=== PATIENT | male | born 1975 | race Caucasian/White ===

== ENCOUNTER 2016-09-17 16:48 | Emergency (ER) | payer BC ==
[2016-09-17 17:20] VITALS: BP 147/95
--- NOTE | 2016-09-17 19:37 | EDM.PDOC ---
ED HPI NEURO - General Chief Complaint: Neuro Symptoms/Deficits Stated Complaint: SOB, DIZZINESS, BLURRY VISION Time Seen by Provider: 09/17/16 17:33 Source of Information: Reports: Patient History Limitations: Reports: No limitations - History of Present Illness INITIAL COMMENTS - FREE TEXT/NARRATIVE: Patient presents for evaluation and treatment of dizziness. He reports that the dizziness started this morning. He states it is worse with movement. He was able to go to work today but the dizziness did not improve thus he decided to come home. He reports that he is having trouble focusing his vision and feels that his vision is slow to react. He denies any blurry vision or double vision. He also reports associated symptoms of nausea. He reports hearing loss but states this is chronic and has not noticed any change. Also has some tinnitus but states this is chronic. He denies any malaise, vomiting, headache, fevers, change in speech, change in gait, chest pain or shortness of breath. Patient reports a similar epidsode about 6 months ago and resolved on its own. He also states that about one year ago he developed some facial droop and some confusion that lasted only a short time. This resolved on its own. His states that she was concerned about his blood pressure and his blood pressure at home. It was 155/96 with a heart rate of 96. - Related Data Allergies/ADRs: Allergies Allergy/AdvReac Type Severity Reaction Status Date / Time No Known Allergies Allergy Verified 09/17/16 17:21 Home Meds: Home Meds Meclizine [Antivert] 25 mg PO TID PRN #20 tablet 09/17/16 [Rx] Past Medical History HEENT History: Reports: Impaired vision Other HEENT History: Glasses Cardiovascular History: Reports: Other (see below) Other Cardiovascular History: "I was told when I was younger I had a super mild heart attack- not sure on the words they used" - Patient states Gastrointestinal History: Reports: GERD Musculoskeletal History: Reports: Back pain, chronic, Neck pain, chronic, Other (see below) Other Musculoskeletal History: Shoulders, feet, hips - chronic pain Psychiatric History: Reports: Addiction, Anxiety, Depression - Infectious Disease History Infectious Disease History: Reports: Chicken pox Social & Family History - Family History Family Medical History: Noncontributory - Tobacco Use Smoking Status *Q: Current Every Day Smoker Years of Tobacco use: 25 Packs/Tins Daily: 1 - Caffeine Use Caffeine Use: Reports: Coffee, Energy drinks, Soda - Recreational Drug Use Recreational Drug Use: No ED ROS GENERAL - Review of Systems Review Of Systems: See Below Constitutional: Denies: fever, malaise HEENT: Reports: Hearing loss (chronic, no change), Other (tinnitus, chronic). Denies: Ear pain, Vision change Respiratory: Denies: shortness of breath Cardiovascular: Denies: Chest pain GI/Abdominal: Reports: Nausea. Denies: Vomiting Neurological: Denies: headache ED EXAM, NEURO - Physical Exam Exam: See Below Exam Limited By: No limitations General Appearance: alert, WD/WN, no apparent distress Eye Exam: bilateral eye: EOMI, nystagmus (with lateral gaze), PERRL Ears: normal external exam, normal canal, hearing grossly normal, normal TMs Nose: normal inspection Throat/Mouth: Normal inspection, Normal voice, No airway compromise Neck: normal inspection, supple, non-tender, full range of motion Respiratory/Chest: no respiratory distress, lungs clear, normal breath sounds Cardiovascular: normal peripheral pulses, regular rate, rhythm, no murmur GI/Abdominal: normal bowel sounds, soft, non tender Neurological: alert, normal mood/affect, normal dorsiflexion, CN II-XII intact, normal plantar flexion, normal gait, oriented x 3, other (smile symmetrical, 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, dorsiflexion 5/5 bilaterally, plantar flexion 5/5 bilaterally, no speech changes, NIHSS score 0) Psychiatric: normal affect, normal mood Skin Exam: Warm, Dry Course - Vital Signs Last Recorded V/S: Last Vital Signs Temp 36.4 C 09/17/16 17:11 Pulse 84 09/17/16 17:11 Resp 16 09/17/16 17:11 BP 147/95 H 09/17/16 17:11 Pulse Ox 100 09/17/16 17:11 Orthostatic Blood Pressure [ 163/98 Standing] Orthostatic Blood Pressure [ 127/81 Supine] - Orders/Labs/Meds Labs: Laboratory Tests 09/17/16 09/17/16 Range/Units 17:20 17:20 WBC 12.87 H (4.23-9.07) K/mm3 RBC 4.82 (4.63-6.08) M/mm3 Hgb 15.1 (13.7-17.5) gm/L Hct 45.0 (40.1-51.0) % MCV 93.4 H (79.0-92.2) fl MCH 31.3 (25.7-32.2) pg MCHC 33.6 (32.2-35.5) g/dl RDW Std Deviation 42.5 (35.1-43.9) fL Plt Count 177 (163-337) K/mm3 MPV 12.2 (9.4-12.3) fl Neut % (Auto) 65.4 (34.0-67.9) % Lymph % (Auto) 22.1 (21.8-53.1) % [place] % (Auto) 9.0 (5.3-12.2) % Eos % (Auto) 3.0 (0.8-7.0) Baso % (Auto) 0.3 (0.1-1.2) % Neut # 8.43 H (1.78-5.38) K/mm3 Lymph # 2.84 (1.32-3.57) K/mm3 [place] # 1.16 H (0.30-0.82) K/mm3 Eos # 0.38 (0.04-0.54) K/mm3 Baso # 0.04 (0.01-0.08) K/mm3 Sodium 144 (136-145) mEq/L Potassium 3.9 (3.5-5.1) mEq/L Chloride 110 H (98-107) mEq/L Carbon Dioxide 21 (21-32) mEq/L Anion Gap 16.9 H (5-15) BUN 22 H (7-18) mg/dL Creatinine 1.0 (0.7-1.3) mg/dL Est Cr Clr Drug Dosing 106.68 mL/min Estimated GFR (MDRD) > 60 (>60) mL/min BUN/Creatinine Ratio 22.0 H (14-18) Glucose 89 (74-106) mg/dL Calcium 8.6 (8.5-10.1) mg/dL Total Bilirubin 0.2 (0.2-1.0) mg/dL AST 11 L (15-37) U/L ALT 39 (16-63) U/L Alkaline Phosphatase 103 (46-116) U/L C-Reactive Protein < 0.2 (<1.0) mg/dL Total Protein 7.1 (6.4-8.2) g/dl Albumin 3.6 (3.4-5.0) g/dl Globulin 3.5 gm/dL Albumin/Globulin Ratio 1.0 (1-2) TSH 3rd Generation 1.404 (0.358-3.74) uIU/mL - Re-Assessments/Exams Free Text/Narrative Re-Assessment/Exam: 09/17/16 19:30 Labs returned. WBC slightly elevated at 12.87, hgb ios 4.82 and plts are 177 Sodium is 144, potassium is 3.9 and chloride is 110. Anion gap is 16.9. Glucose is 89 CRP is within normal limits at <0.2 TSH is within normal limits at 1.404 Discussed labs with the patient. I fell he likely has BPPV. Will discharge home at this time with meclizine for dizziness as needed and instructions to follow-up with Dr. Mathew. Departure - Departure Time of Disposition: 19:34 Disposition: Home, Self-Care 01 Condition: fair Clinical Impression: BPPV (benign paroxysmal positional vertigo) Prescriptions: Meclizine [Antivert] 25 mg PO TID PRN #20 tablet PRN Reason: Dizziness Instructions: Benign Positional Vertigo Referrals: PCP,None [Primary Care Provider] - Agus Mathew MD [Physician] - Forms: ED Department Discharge Additional Instructions: Rest and drink plenty of fluids. Meclizine 2-3 times a day as needed for dizziness. Follow-up with Dr. Mathew next week if your symptoms persist. Call [phone] to schedule with him. Please return to the ER should your symptoms change or worsen.
== END 2016-09-17 19:50 | disposition home or self-care (01) ==
LOC: JD.ED 16:48
DX: H81.10 Benign paroxysmal vertigo, unspecified ear (principal); K21.9 Gastro-esophageal reflux disease without esophagitis; F41.8 Other specified anxiety disorders; F17.210 Nicotine dependence, cigarettes, uncomplicated
CPT/HCPCS: 36415; 80053; 84443; 85025; 86140; 99283; 99284

== ENCOUNTER 2017-03-29 07:23 | Emergency (ER) | payer BC ==
[2017-03-29 07:52] VITALS: BP 147/91
[2017-03-29] MEDS ORDERED: Sodium Chloride 0.9% 10 ML Syringe FLUSH PRN (07:52)
[2017-03-29] MEDS ORDERED: Ondansetron 4 MG/2 ML SDV IVPUSH ONE (07:52)
[2017-03-29] MEDS ORDERED: HYDROmorphone 1 MG/ML Syringe IVPUSH ONE (07:54)
[2017-03-29] MEDS ORDERED: Ketorolac 30 MG/ML SDV IVPUSH ONE (07:54)
--- NOTE | 2017-03-29 07:59 | EDM.PDOC ---
ED HPI GENERAL MEDICAL PROBLEM - General Chief Complaint: Abdominal Pain Stated Complaint: FLANK AND ABDOMINAL PAIN Time Seen by Provider: 03/29/17 07:49 Source of Information: Reports: Patient History Limitations: Reports: No Limitations - History of Present Illness INITIAL COMMENTS - FREE TEXT/NARRATIVE: The patient presents with right flank and right sided abdominal pain. The patient said about 2 weeks ago he had pain on the left that he woke up with and it went away when he went to work. Yesterday he had pain in the right flank. It went away after he went to work. This morning it hurt again and it did not go away. He has no history of kidney stones. He has nausea but no vomiting. He has no fever or chills. He has no chest pain, shortness of breath or cough. He has no dysuria and no hematuria. Onset: Sudden Duration: Hour(s): Location: Reports: Abdomen (right abdomen), Back (Right flank) Quality: Reports: Sharp Severity: Moderate Improves with: Reports: None Worsens with: Reports: None Context: Reports: Other (Woke up with it) Associated Symptoms: Reports: Nausea/Vomiting. Denies: Chest Pain, Cough, Fever /Chills, Headaches, Shortness of Breath Right Flank Pain Score (Numeric/FACES): 6 - Related Data Allergies Allergy/AdvReac Type Severity Reaction Status Date / Time No Known Allergies Allergy Verified 03/29/17 07:53 Home Meds: Home Meds Tamsulosin HCl [Flomax] 0.4 mg PO DAILY #10 cap.er.24h 03/29/17 [Rx] oxyCODONE HCl/Acetaminophen [Percocet 5-325 mg Tablet] 1 - 2 each PO Q6HR PRN # 20 tablet 03/29/17 [Rx] Past Medical History HEENT History: Reports: Impaired Vision Other HEENT History: Glasses Cardiovascular History: Reports: Other (See Below) Other Cardiovascular History: "I was told when I was younger I had a super mild heart attack- not sure on the words they used" - Patient states Gastrointestinal History: Reports: GERD Musculoskeletal History: Reports: Back Pain, Chronic, Neck Pain, Chronic, Other (See Below) Other Musculoskeletal History: Shoulders, feet, hips - chronic pain Psychiatric History: Reports: Addiction, Anxiety, Depression - Infectious Disease History Infectious Disease History: Reports: Chicken Pox Social & Family History - Family History Family Medical History: Noncontributory - Tobacco Use Smoking Status *Q: Current Every Day Smoker Years of Tobacco use: 25 Packs/Tins Daily: 1 - Caffeine Use Caffeine Use: Reports: Coffee, Energy Drinks, Soda - Recreational Drug Use Recreational Drug Use: No ED ROS GENERAL - Review of Systems Review Of Systems: See Below Constitutional: Reports: No Symptoms HEENT: Reports: No Symptoms Respiratory: Reports: No Symptoms Cardiovascular: Reports: No Symptoms Endocrine: Reports: No Symptoms GI/Abdominal: Reports: Abdominal Pain, Nausea. Denies: Diarrhea, Vomiting : Reports: Flank Pain (Right) Musculoskeletal: Reports: No Symptoms ED EXAM, RENAL/ - Physical Exam Exam: See Below Exam Limited By: No Limitations General Appearance: Alert, No Apparent Distress Ears: Normal External Exam Nose: Normal Inspection Head: Atraumatic, Normocephalic Neck: Normal Inspection Respiratory/Chest: No Respiratory Distress, Lungs Clear, Normal Breath Sounds Cardiovascular: Regular Rate, Rhythm, No Edema, No Murmur GI/Abdominal: Soft, Non-Tender, No Organomegaly, No Mass Back Exam: Normal Inspection Extremities: Normal Inspection Course - Vital Signs Last Recorded V/S: Last Vital Signs Temp 97.1 F 03/29/17 07:46 Pulse 69 03/29/17 07:46 Resp 16 03/29/17 07:46 BP 147/91 H 03/29/17 07:46 Pulse Ox 99 03/29/17 07:46 - Orders/Labs/Meds Orders: Active Orders 24 hr Category Date Time Status Peripheral IV Care [RC] . DIRECTED Care 03/29/17 07:53 Active Sodium Chloride 0.9% [Normal Saline] 1,000 ml Med 03/29/17 08:00 Active IV ASDIRECTED Sodium Chloride 0.9% [Saline Flush] Med 03/29/17 07:52 Active 10 ml FLUSH ASDIRECTED PRN ED Antiemetic Medication Reflex [OM.PC] Stat Oth 03/29/17 07:53 Ordered Peripheral IV Insertion Adult [OM.PC] Stat Oth 03/29/17 07:52 Ordered Medication Orders Sodium Chloride (Normal Saline) 1,000 mls @ 125 mls/hr IV ASDIRECTED [facility] Last Admin: 03/29/17 08:27 Dose: 125 mls/hr Sodium Chloride (Saline Flush) 10 ml FLUSH ASDIRECTED PRN PRN Reason: Keep Vein Open Last Admin: 03/29/17 08:26 Dose: 10 ml Labs: Laboratory Tests 03/29/17 03/29/17 03/29/17 Range/Units 08:02 08:02 08:13 WBC 12.22 H (4.23-9.07) K/mm3 RBC 4.85 (4.63-6.08) M/mm3 Hgb 15.1 (13.7-17.5) gm/L Hct 44.7 (40.1-51.0) % MCV 92.2 (79.0-92.2) fl MCH 31.1 (25.7-32.2) pg MCHC 33.8 (32.2-35.5) g/dl RDW Std Deviation 41.9 (35.1-43.9) fL Plt Count 193 (163-337) K/mm3 MPV 11.6 (9.4-12.3) fl Neut % (Auto) 76.1 H (34.0-67.9) % Lymph % (Auto) 14.6 L (21.8-53.1) % [place] % (Auto) 7.6 (5.3-12.2) % Eos % (Auto) 1.1 (0.8-7.0) Baso % (Auto) 0.4 (0.1-1.2) % Neut # (Auto) 9.31 H (1.78-5.38) K/mm3 Lymph # (Auto) 1.78 (1.32-3.57) K/mm3 [place] # (Auto) 0.93 H (0.30-0.82) K/mm3 Eos # (Auto) 0.13 (0.04-0.54) K/mm3 Baso # (Auto) 0.05 (0.01-0.08) K/mm3 Sodium 141 (136-145) mEq/L Potassium 4.3 (3.5-5.1) mEq/L Chloride 108 H (98-107) mEq/L Carbon Dioxide 24 (21-32) mEq/L Anion Gap 13.3 (5-15) BUN 22 H (7-18) mg/dL Creatinine 1.2 (0.7-1.3) mg/dL Est Cr Clr Drug Dosing 88.02 mL/min Estimated GFR (MDRD) > 60 (>60) mL/min BUN/Creatinine Ratio 18.3 H (14-18) Glucose 134 H (74-106) mg/dL Calcium 9.1 (8.5-10.1) mg/dL Total Bilirubin 0.5 (0.2-1.0) mg/dL AST 24 (15-37) U/L ALT 40 (16-63) U/L Alkaline Phosphatase 107 (46-116) U/L Total Protein 7.6 (6.4-8.2) g/dl Albumin 3.9 (3.4-5.0) g/dl Globulin 3.7 gm/dL Albumin/Globulin Ratio 1.1 (1-2) Lipase 515 H (73-393) U/L Urine Color Yellow (Yellow) Urine Appearance Slt cloudy H (Clear) Urine pH 5.5 (5.0-8.0) Ur Specific [place] > or = 1.030 (1.005-1.030) Urine Protein 1+ H (Negative) Urine Glucose (UA) Negative (Negative) Urine Ketones Negative (Negative) Urine Occult Blood 3+ H (Negative) Urine Nitrite Negative (Negative) Urine Bilirubin Negative (Negative) Urine Urobilinogen 0.2 (0.2-1.0) Ur Leukocyte Esterase Negative (Negative) Urine RBC 20-30 H (0-5) /hpf Urine WBC 0-5 (0-5) /hpf Ur Epithelial Cells Not seen (0-5) /hpf Urine Bacteria Few (FEW) /hpf Urine Mucus Not seen (FEW) /hpf Meds: Medications Generic Name Dose Route Start Last Admin Trade Name Freq PRN Reason Stop Dose Admin Sodium Chloride 1,000 mls @ 125 mls/hr 03/29/17 08:00 03/29/17 08:27 Normal Saline IV 125 mls/hr ASDIRECTED [place] Administration Sodium Chloride 10 ml 03/29/17 07:52 03/29/17 08:26 Saline Flush FLUSH 10 ml ASDIRECTED PRN Administration Keep Vein Open Discontinued Medications Generic Name Dose Route Start Last Admin Trade Name Freq PRN Reason Stop Dose Admin Hydromorphone HCl 1 mg 03/29/17 07:54 03/29/17 08:24 Dilaudid IVPUSH 03/29/17 07:55 1 mg ONETIME ONE Administration Ketorolac Tromethamine 30 mg 03/29/17 07:54 03/29/17 08:22 Toradol IVPUSH 03/29/17 07:55 30 mg ONETIME ONE Administration Ondansetron HCl 4 mg 03/29/17 07:52 03/29/17 08:19 Zofran IVPUSH 03/29/17 07:53 4 mg ONETIME ONE Administration - Re-Assessments/Exams Free Text/Narrative Re-Assessment/Exam: 03/29/17 07:58 I ordered an IV NS at 125mL/hr, zofran 4mg IV, dilaudid 1mg IV, toradol 30mg IV , labs, UA and a CT of his abdomen and pelvis. 03/29/17 09:18 His WBC was elevated at 12.22. His creatinine was normal at 1.2. His glucose was a little elevated at 134. His lipase was elevated at 515. He admits to drinking about 5 drinks on Tuesday. He does not have any pain in his LUQ. His CT shows obstructing stone within the proximal left ureter measuring 5mm. Partially obstructing stone within the distal right ureter measuring about 1.4mm. Small 1.5mm calculus noted within the bladder. He feels better. I will give him something for pain, flomax and he should take an antiinflammatory. I will have him follow up with Dr Jeffers or one of his partners. I will also have him follow up with Dr James for the pancreatitis. Departure - Departure Time of Disposition: 09:25 Disposition: Home, Self-Care 01 Condition: Good Clinical Impression: Kidney stones, Ureteral colic, Ureteral calculi - Discharge Information Prescriptions: oxyCODONE HCl/Acetaminophen [Percocet 5-325 mg Tablet] 1 - 2 each PO Q6HR PRN # 20 tablet PRN Reason: Pain Tamsulosin HCl [Flomax] 0.4 mg PO DAILY #10 cap.er.24h Referrals: Leonides James MD [Physician] - 1 Week Pillo Jeffers MD [Physician] - Forms: ED Department Discharge Additional Instructions: Take the flomax daily. Take the percocet as needed for pain. Also take an antiinflammatory such as motrin or aleve. Do not drink alcohol to let your pancreas recover. Follow up with Dr James for that. Call Dr Jeffers's office and follow up with him or one of his partners within the next week. Please return if you are worse. - My Orders Last 24 Hours: My Active Orders 03/29/17 07:52 Sodium Chloride 0.9% [Saline Flush] 10 ml FLUSH ASDIRECTED PRN Peripheral IV Insertion Adult [OM.PC] Stat 03/29/17 07:53 Peripheral IV Care [RC] . DIRECTED ED Antiemetic Medication Reflex [OM.PC] Stat 03/29/17 08:00 Sodium Chloride 0.9% [Normal Saline] 1,000 ml IV ASDIRECTED - Assessment/Plan Last 24 Hours: My Active Orders 03/29/17 07:52 Sodium Chloride 0.9% [Saline Flush] 10 ml FLUSH ASDIRECTED PRN Peripheral IV Insertion Adult [OM.PC] Stat 03/29/17 07:53 Peripheral IV Care [RC] . DIRECTED ED Antiemetic Medication Reflex [OM.PC] Stat 03/29/17 08:00 Sodium Chloride 0.9% [Normal Saline] 1,000 ml IV ASDIRECTED
[2017-03-29] MEDS ORDERED: Sodium Chloride 0.9% 1,000 ML IV SCH (08:00)
--- NOTE | 2017-03-29 08:33 | CT ---
CT abdomen and pelvis Technique: Multiple axial sections were obtained from above the dome of the diaphragm inferiorly through the pubic symphysis. Intravenous and oral contrast not utilized. Study has been performed as a ureteral stone protocol. Comparison: No previous exam. Findings: Proximal collecting system within the left kidney is mildly prominent. This finding is due to an obstructing stone within the proximal left ureter located slightly past the UPJ measuring approximately 5 mm. Right ureter is mildly prominent with a very small calculus being seen within the distal right ureter measuring about 1.4 mm. There is a very small calcification being seen within the bladder measuring about 1.5 mm. No other abnormal calcifications are seen within the kidneys or ureters. Visualized lung bases shows nothing acute. Liver shows no focal parenchymal abnormality. Spleen appears within normal limits. Adrenal glands show no nodule. Pancreas is within normal limits. Aorta shows no aneurysmal dilatation. No retroperitoneal adenopathy or mesenteric abnormalities are seen. No pelvic mass or adenopathy is seen. No free fluid or inflammatory change is seen. Appendix not definitely visualized. Bone window settings were reviewed which shows mild scattered degenerative change. Impression: 1. Obstructing stone within the proximal left ureter measuring 5 mm. 2. Partially obstructing stone within the distal right ureter measuring about 1.4 mm. 3. Small 1.5 mm calculus noted within the bladder. 4. Other incidental findings. Diagnostic code #3
== END 2017-03-29 09:40 | disposition home or self-care (01) ==
LOC: JD.ED 07:23
DX: N20.2 Calculus of kidney with calculus of ureter (principal); K21.9 Gastro-esophageal reflux disease without esophagitis; F32.9 Major depressive disorder, single episode, unspecified; F17.210 Nicotine dependence, cigarettes, uncomplicated; Z79.899 Other long term (current) drug therapy
CPT/HCPCS: 36415; 74176; 80053; 81001; 83690; 85025; 96361; 96374; 96375; 99284; J1170; J1885; J2405; J7040; J7050

== ENCOUNTER 2021-07-19 02:51 | Emergency (ER) | payer BC ==
[2021-07-19] MEDS ORDERED: Alum Hydrox/Mag Hydrox/Simeth 30 ML, Lidocaine 2% 15 ML PO STA ×4 (03:23→05:14)
--- NOTE | 2021-07-19 03:30 | EDM.PDOC ---
ED HPI GENERAL MEDICAL PROBLEM - General Chief Complaint: Chest Pain Stated Complaint: CHEST PAIN Time Seen by Provider: 07/19/21 03:02 Source of Information: Reports: Patient, Family () History Limitations: Reports: No Limitations - History of Present Illness INITIAL COMMENTS - FREE TEXT/NARRATIVE: Mr. Romeo is a very pleasant 45-year-old gentleman who now presents to the ED stating that he developed sudden-onset epigastric/lower retrosternal pain around 14:00 yesterday afternoon, 07/18/2021. He describes the pain as a prickly/pressure sensation, and states that it is a pain, not a discomfort. He states that it has been coming and going. It may be worse if he lies in the left decubitus position, otherwise, he has not identified any modifiers. He st ates that he has associated slight dyspnea and he feels anxious, but denies nausea, diaphoresis, or sense of impending doom. This is the 6th episode of similar symptoms. He states that he was diagnosed with COVID-19 on March 01 or , and had similar symptoms at that time, then again in mid-April, around , 3 weeks ago, and then again 2 weeks ago. During the initial event, he took oxycodone, and his symptoms resolved. 3 weeks ago, he took ibuprofen, and his symptoms resolved. He states that he has taken ibuprofen with all of the other symptoms, although the symptoms eventually resolved, but not relatively quickly. His last dose of ibuprofen was 600 mg at 02:00 this morning. He has not undergone any medical evaluation for any of the prior events. At triage, the patient's initial BP was found to be mildly elevated at 147/91, otherwise, he was hemodynamically stable, afebrile, saturating 100% on room air. He appears to be comfortable, in no acute distress. The patient states that he had some dysuria, therefore was seen at the walk-in clinic yesterday, where a urinalysis was unremarkable. Otherwise, prior to yesterday afternoon, the patient denies having a recent fever, chills, sore throat, ear pain, nasal or sinus congestion, cough, dyspnea, chest pain, palpitations, nausea, vomiting, constipation, diarrhea, abdominal pain, recent weight gain or weight loss, recent bloody bowel movements or black bowel movements, recent joint aches, headaches, or rashes. The patient's PCP was Dr. Leonides James, although he last saw Dr. James in 2008. He has not received a COVID vaccination, nor an influenza vaccination this season. Chest Pain Score (Numeric/FACES): 5 - Related Data Allergies Allergy/AdvReac Type Severity Reaction Status Date / Time No Known Allergies Allergy Verified 07/19/21 03:00 Home Meds: Home Meds Tamsulosin HCl [Flomax] 0.4 mg PO DAILY #10 cap.er.24h 03/29/17 [Rx] Past Medical History HEENT History: Reports: Impaired Vision (wears glasses) Gastrointestinal History: Reports: GERD (untreated) Genitourinary History: Reports: BPH, Renal Calculus Psychiatric History: Reports: Anxiety (untreated), Depression (untreated) - Infectious Disease History Infectious Disease History: Reports: Chicken Pox, Novel Coronavirus (dx'd 03/01/2021 or 03/02/2021) - Past Surgical History HEENT Surgical History: Reports: Oral Surgery (dental extractions) GI Surgical History: Reports: Appendectomy (1992) Female Surgical History: Reports: Lithotripsy/ESWL, Other (See Below) (Vasectomy) Social & Family History - Tobacco Use Tobacco Use Status *Q: Current Every Day Tobacco User Years of Tobacco use: 30 Packs/Tins Daily: 1 Tobacco Use Comment: Started smoking 1990 - Caffeine Use Caffeine Use: Reports: None - Alcohol Use Alcohol Use History: Yes Alcohol Use Frequency: Rarely - Recreational Drug Use Recreational Drug Use: Yes Drug Use in Last 12 Months: No 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 ED EXAM, GENERAL - Physical Exam Exam: See Below Exam Limited By: No Limitations General Appearance: Alert, WD/WN, No Apparent Distress Eye Exam: Bilateral Eye: EOMI, Normal Inspection Ears: Normal External Exam, Hearing Grossly Normal Nose: Normal Inspection Throat/Mouth: Normal Inspection, Normal Lips, Normal Voice, No Airway Compromise Head: Atraumatic, Normocephalic Neck: Normal Inspection, Full Range of Motion Respiratory/Chest: No Respiratory Distress, Lungs Clear, Normal Breath Sounds, No Accessory Muscle Use, Chest Non-Tender Cardiovascular: Normal Peripheral Pulses, Regular Rate, Rhythm, No Edema, No Gallop, No JVD, No Murmur, No Rub Peripheral Pulses: 3+: Radial (L), Radial (R) GI/Abdominal: Normal Bowel Sounds, Soft, No Organomegaly, No Distention, No Abnormal Bruit, No Mass, Tender (Slight, reproducible, to the epigastrium only. Nontender elsewhere.) Back Exam: Normal Inspection, Full Range of Motion, NT Extremities: Normal Inspection, Normal Range of Motion, No Pedal Edema, Normal Capillary Refill Neurological: Alert, Oriented, Normal Cognition, No Motor/Sensory Deficits Psychiatric: Normal Affect Skin Exam: Warm, Dry, Intact, Normal Color, No Rash #1 Interpretation EKG Date: 07/19/21 Time: 02:56 Rhythm: NSR (with respiratory variation) Rate (Beats/Min): 82 Tahoma: Normal P-Wave: Present QRS: Normal ST-T: Normal QT: Normal Comparison: NA - No Prior EKG Course - Vital Signs Last Recorded V/S: Last Vital Signs Temp 36.3 C 07/19/21 02:57 Pulse 78 07/19/21 07:35 Resp 16 07/19/21 07:35 BP 128/84 07/19/21 07:35 Pulse Ox 95 07/19/21 07:35 - Orders/Labs/Meds Orders: Active Orders 24 hr Category Date Time Status Chest 2V [CR] Stat Exams 07/19/21 03:24 Taken Labs: Laboratory Tests 07/19/21 07/19/21 07/19/21 Range/Units 03:30 03:30 03:30 WBC 12.52 H (4.23-9.07) K/mm3 RBC 4.80 (4.63-6.08) M/mm3 Hgb 14.9 (13.7-17.5) gm/dl Hct 45.9 (40.1-51.0) % MCV 95.6 H D (79.0-92.2) fl MCH 31.0 (25.7-32.2) pg MCHC 32.5 (32.2-35.5) g/dl RDW Std Deviation 43.5 (35.1-43.9) fL Plt Count 176 (163-337) K/mm3 MPV 11.3 (9.4-12.3) fl Neut % (Auto) 70.8 H (34.0-67.9) % Lymph % (Auto) 20.0 L (21.8-53.1) % Clinch % (Auto) 6.8 (5.3-12.2) % Eos % (Auto) 1.8 (0.8-7.0) Baso % (Auto) 0.3 (0.1-1.2) % Neut # (Auto) 8.86 H (1.78-5.38) K/mm3 Lymph # (Auto) 2.51 (1.32-3.57) K/mm3 Clinch # (Auto) 0.85 H (0.30-0.82) K/mm3 Eos # (Auto) 0.22 (0.04-0.54) K/mm3 Baso # (Auto) 0.04 (0.01-0.08) K/mm3 Sodium 145 (136-145) mEq/L Potassium 4.1 (3.5-5.1) mEq/L Chloride 109 H (98-107) mEq/L Carbon Dioxide 27 (21-32) mEq/L Anion Gap 13.1 (5-15) BUN 22 H (7-18) mg/dL Creatinine 1.0 (0.7-1.3) mg/dL Est Cr Clr Drug Dosing 101.45 mL/min Estimated GFR (MDRD) > 60 (>60) mL/min BUN/Creatinine Ratio 22.0 H (14-18) Glucose 139 H (70-99) mg/dL Calcium 8.2 L (8.5-10.1) mg/dL Troponin I < 0.017 (0.00-0.056) ng/mL NT-Pro-B Natriuret Pep 34 (0-125) pg/mL Meds: Medications Discontinued Medications Generic Name Dose Route Start Last Admin Trade Name Freq PRN Reason Stop Dose Admin Al Hydroxide/Mg Hydroxide 30 0 ml 07/19/21 03:23 07/19/21 03:33 ml/ Lidocaine HCl 15 ml PO 07/19/21 03:24 45 ml ONETIME STA Administration Al Hydroxide/Mg Hydroxide 30 0 ml 07/19/21 05:14 07/19/21 05:20 ml/ Lidocaine HCl 15 ml PO 07/19/21 05:15 45 ml ONETIME STA Administration Famotidine 40 mg 07/19/21 04:36 07/19/21 04:49 Famotidine 20 Mg Tab PO 07/19/21 04:37 40 mg ONETIME STA Administration Hydromorphone HCl 1 mg 07/19/21 04:36 07/19/21 04:49 Hydromorphone 1 Mg/Ml Syringe IM 07/19/21 04:37 1 mg ONETIME ONE Administration Hydromorphone HCl 1 mg 07/19/21 06:04 07/19/21 06:09 Hydromorphone 1 Mg/Ml Syringe IM 07/19/21 06:05 1 mg ONETIME ONE Administration - Re-Assessments/Exams Free Text/Narrative Re-Assessment/Exam: 07/19/21 03:25 The epigastric location of the patient's pain and its reproducibility with palpation of the epigastrium strongly suggest that the patient's symptoms are due to GERD. His ECG, obtained at triage, shows no ischemic changes. I have ordered a GI cocktail to see if he has any relief with that. In the meantime, however, I have also ordered some blood work and a chest x-ray. 07/19/21 03:41 The patient states that the GI cocktail did not modify his symptoms. 07/19/21 04:30 Two-view chest radiograph reviewed. The cardiac silhouette is within normal limits. No pulmonary vascular congestion. No pleural effusions. There is a triangular infiltrate noted to the right lower lobe of unclear significance. No pneumothorax. Formal read per the Radiologist pending. The patient's CBC is remarkable for mild leukocytosis of 12.52, and is otherwise unremarkable. His BMP is remarkable for a BUN slightly elevated 22 with a Cr normal at 1.0, and mild hyperglycemia of 139, with the remainder of his BMP being unremarkable. His troponin is undetectably low. His pro-BNP is within normal limits at 34. 07/19/21 04:36 Test results discussed with the patient and his . He states that his pain is only gotten worse. With his negative work-up, his pain does not appear to be cardiac, and, unfortunately, I cannot say with certainty what the cause of his pain is, but statistically speaking, it is still most likely GI, despite his not having any relief with a GI cocktail. I have ordered 40 mg of oral famotidine and 1 mg of Dilaudid IM, to see if we can get him some relief. 07/19/21 05:15 Despite the famotidine and Dilaudid, the patient states that he is still in pain. I ordered a second GI cocktail. 07/19/21 06:05 The patient reports only slight improvement in his pain following the second GI cocktail. I have ordered a second dose of Dilaudid IM. 07/19/21 07:18 Following the second dose of Dilaudid, the patient states he is feeling substantially better, and well enough to go home. I will have him take OTC famotidine, 1 tablet twice a day for 1 week. At that time, he can decrease the dosage to 1 tablet once a day, but if his symptoms return, he needs to return the dosage to 1 tablet twice a day. If he is still symptomatic with 1 tablet twice a day, I am recommending that he follow-up with Dr. James to arrange for an EGD. Departure - Departure Time of Disposition: 07:19 Disposition: Home, Self-Care 01 Condition: Good Clinical Impression: Epigastric abdominal pain of unknown etiology - Discharge Information *PRESCRIPTION DRUG MONITORING PROGRAM REVIEWED*: Not Applicable *COPY OF PRESCRIPTION DRUG MONITORING REPORT IN PATIENT PRANEETH: Not Applicable Instructions: Abdominal Pain, Adult, [id number] Referrals: Leonides James MD [Ordering Only Provider] - Forms: ED Department Discharge Additional Instructions: You were seen in the emergency room after developing upper midline abdominal/lower chest pain yesterday afternoon. Work-up in the ER included several blood tests, a chest x-ray, and an ECG. Your entire work-up was unremarkable. You have not suffered a heart attack. The cause of your pain has not been determined, but could be due to acid reflux. We recommend that you purchase [id number] famotidine (generic Pepcid) and begin taking 1 tablet twice a day for 7 days. At that time, you can decrease the dosage to 1 tablet once a day, but if your symptoms return, you should return to 1 tablet twice a day. If you still have symptoms even after taking 1 tablet twice a day, we recommend that you follow-up with your PCP, Dr. Leonides James, to arrange for an EGD (scope of your stomach). If any other problems, please do not hesitate to return to the ER. Sepsis Event Note (ED) - Evaluation Sepsis Screening Result: No Definite Risk - My Orders Last 24 Hours: My Active Orders 07/19/21 03:24 Chest 2V [CR] Stat - Assessment/Plan Last 24 Hours: My Active Orders 07/19/21 03:24 Chest 2V [CR] Stat
[2021-07-19] MEDS ORDERED: HYDROmorphone 1 MG/ML Syringe IM ONE ×2 (04:36→06:04)
[2021-07-19] MEDS ORDERED: Famotidine 20 MG Tab PO STA (04:36)
[2021-07-19 07:55] VITALS: BP 128/84; PULSE 78
--- NOTE | 2021-07-20 14:15 | CR ---
EXAM: XR CHEST 2 VIEWS LOCATION: [facility] [place] DATE/TIME: 07/19/2021 3:38 AM INDICATION: Shortness of breath; sternal or substernal pain; chest pain COMPARISON: None. IMPRESSION: Mild left basilar atelectasis and/or scarring. Right lung is clear. No effusions. Elevation the right hemidiaphragm. Heart size is normal. No acute osseous findings. SIGNED BY: Stephen Soto MD 07/20/2021 12:49 PM [id number]
== END 2021-07-19 07:35 | disposition home or self-care (01) ==
LOC: JD.ED 02:51
DX: R10.13 Epigastric pain (principal); N40.0 Benign prostatic hyperplasia without lower urinary tract symptoms; F17.200 Nicotine dependence, unspecified, uncomplicated; Z79.899 Other long term (current) drug therapy
CPT/HCPCS: 36415; 71046; 80048; 83880; 84484; 85025; 93005; 96372; 99285; A9270; J1170; 93010